=== PATIENT | male | born 1945 | race Caucasian/White ===

== ENCOUNTER → 2022-04-23 12:52 | Outpatient (CLI) | payer OTHER, SELFPAY ==
--- NOTE | ~2022-04-23 | US_ITS ---
EXAMINATION: US venous doppler [facility] DATE: 04/23/2022 13:30 INDICATION: Lower limb localized edema. TECHNIQUE: Grayscale ultrasound images without and with compression and Doppler ultrasound images of the bilateral lower extremity veins were obtained. COMPARISON: None. FINDINGS: The visualized portions of right common femoral vein, profunda (deep) femoral vein, femoral vein, pop liteal vein, peroneal veins, posterior tibial veins, and greater saphenous vein outflow are patent. The visualized portions of left common femoral vein, profunda femoral vein, femoral vein, popliteal v ein, peroneal veins, posterior tibial veins, and greater saphenous vein outflow are patent. IMPRESSION: 1. No deep venous thrombosis. Reviewed, dictated and finalized at location A.
--- NOTE | ~2022-04-23 | US_ITS ---
US renal BI 04/23/2022 13:29 Procedure: Realtime transabdominal ultrasound of the kidneys and bladder. Indication: Mass seen on MRI in the right kidney Comparison: No prior studies for comparison. Findings: Renal echotexture is normal bilaterally without hydronephrosis or renal stone. There is a r ight renal cyst laterally measuring 5.7 x 5.3 x 4.9 cm. The right kidney measures 10.5 cm and left ki dney measures 10.3 cm. Bladder within normal limits. Impression: 1: Right renal cyst measuring 5.7 cm maximum dimension. Reviewed, dictated and finalized at location A. Impression: 1: Right renal cyst measuring 5.7 cm maximum dimension.
== END ==
PROVIDERS: PCP Family Medicine Adolescent Medicine; Visit Provider Family Medicine Adolescent Medicine
DX: N28.89 Other specified disorders of kidney and ureter (principal); N28.1 Cyst of kidney, acquired; R60.0 Localized edema
CPT/HCPCS: 76775; 93970

== ENCOUNTER 2023-09-23 09:25 | Outpatient (CLI) | payer OTHER, SELFPAY ==
--- NOTE | 2023-09-23 11:00 | NEURO_ITS ---
Impression: # Complains of left hand pain and weakness. # Left ulnar neuropathy across the elbow. # No Carpal Tunnel Syndrome. # Needle/EMG exam not ordered. Nerve Conduction Studies Anti Sensory Summary Table Stim Site NR Peak (ms) P-T Amp (?V) Site1 Site2 Delta-P (ms) Dist (cm) Irving (m/s) Left Median Anti Sensory (2-3nd Digit) Wrist 3.6 13.8 Wrist 2-3nd Digit 3.6 14.0 39 Wrist 3.4 9.8 Wrist 2-3nd Digit 3.6 14.0 39 Left Radial Anti Sensory (Base 1st Digit) Wrist 2.5 24.4 Wrist Base 1st Digit 2.5 0.0 Left Ulnar Anti Sensory (5th Digit) Wrist 2.9 16.1 Wrist 5th Digit 2.9 14.0 48 Motor Summary Table Stim Site NR Onset (ms) O-P Amp (mV) Site1 Site2 Delta-0 (ms) Dist (cm) Irving (m/s) Left Median Motor (Abd Poll Brev) Wrist 3.4 3.0 Elbow Wrist 5.0 30.0 60 Elbow 8.4 2.6 Left Ulnar Motor (Abd Dig Minimi) Wrist 2.8 5.0 A Elbow Wrist 5.8 31.0 53 A Elbow 8.6 4.5 B Elbow Wrist 3.9 24.0 62 B Elbow 6.7 4.8 F Wave Studies NR F-Lat (ms) L-R F-Lat (ms) Left Median (Mrkrs) (Abd Poll Brev) 29.47 Left Ulnar (Mrkrs) (Abd Dig Min) 31.24 MTDD
== END 2023-09-23 09:26 | disposition home or self-care (01) ==
PROVIDERS: PCP Family Medicine Adolescent Medicine; Visit Provider Family Medicine Adolescent Medicine
DX: R20.0 Anesthesia of skin (principal); G56.22 Lesion of ulnar nerve, left upper limb
CPT/HCPCS: 95909

== ENCOUNTER 2023-11-24 11:00 | Outpatient (RCR) | payer OTHER, SELFPAY ==
--- NOTE | 2023-09-16 09:51 | OTOPEVAL1 ---
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 He presents today with a wrist contracture. He has two wrist braces/supports that he can no longer wear because of the wrist contracture. His goal is to improve wrist flexibility to wear the wrist immobilizer again to keep his finger nails out of his palm. He states they are digging into his palm and this is becoming painful. Assessment OT Clinical Summary Patient referred to OT with right wrist contracture and PMH of CVA with chronic right sided weakness. He presents with 90 degree flexion contracture of the wrist, which is causing pain and discomfort. This is also restricting safe hand hygiene practices and putting him at risk for developing skin break down and nail growth into the palm. Skilled OT indicated for use of thermal modalities, stretching, and HEP instruction to achieve improved flexibility of the right wrist/ hand. Plan of Care Interventions Therapeutic Exercise,Manual Therapy,Hot Pack/Cold Pack,Electrical Stimulation,Paraffin OT Services Indicated Yes Treatment Frequency and 2x/week for 4 weeks Duration These treatments will address the objective and functional deficits as defined above. The patient will be advanced safely and appropriately in order for the patient to progress towards his/her prior level of function. Additional exercises will be introduced and as well as a comprehensive home exercise program upon discharge, if needed, ?to ensure carryover of functional gains achieved in the clinic. This treatment plan has been reviewed and agreement upon by the patient.
--- NOTE | 2023-09-30 08:43 | PCOTNOTE ---
Patient called & cancelled scheduled appointment this date due to the weather.
--- NOTE | 2023-10-14 08:40 | PCOTNOTE ---
Patient called & cancelled scheduled appointment this date.
--- NOTE | 2023-10-21 11:52 | OTOPPROG ---
Assessment and note entered by GERMAIN Mcgowan/Nestor, CHT Progress Update 10/21/23 Diagnosis Contracture right hand Subjective Information Patient reports improved flexibility of the right wrist and hand. He reports it is easier to straighten his fingers and easier to move the fingers out of the palm for hygiene and nail care. He continues to have wrist pain, but overall this is not as frequent. He reports he is unable to don his wrist brace yet due to tightness. [facility]. Assessment OT Clinical Summary Patient referred to OT with right wrist contracture and PMH of CVA with chronic right sided weakness. Progress noted since starting therapy. He demonstrates improved flexibility, reduced pain, and easier ability to mobilize the fingers out of the palm. Continued skilled OT indicated for use of thermal modalities, stretching, and HEP instruction to achieve improved flexibility of the right wrist/hand to facilitate safe hand hygiene practices of the hand . Plan of Care Interventions Therapeutic Exercise,Manual Therapy,Hot Pack/Cold Pack,Electrical Stimulation,Paraffin OT Services Indicated Yes Treatment Frequency and 2x/week for 8 visits Duration These treatments will address the objective and functional deficits as defined above. The patient will be advanced safely and appropriately in order for the patient to progress towards his/her prior level of function. Additional exercises will be introduced and as well as a comprehensive home exercise program upon discharge, if needed, ?to ensure carryover of functional gains achieved in the clinic. This treatment plan has been reviewed and agreement upon by the patient.
--- NOTE | 2023-11-17 07:56 | PCOTNOTE ---
Patient did not show up for scheduled appointment this date. Called patient who did not answer. Left voicemail.
--- NOTE | 2023-11-24 11:58 | OTOPPROG ---
Assessment and note entered by GERMAIN Mcgowan/Nestor, CHT Progress Update 11/24/23 Diagnosis Contracture right hand Subjective Information Patient continues to report improved flexibility of the right wrist and hand. He is progressing to being able to wear his resting hand splint again with the fingers extended sometimes. He is having an easier time getting his fingers out of the palm for nail care. He also reports improvements with being able to hold his tooth brush with the right hand while using the left to squeeze tooth paste onto. Assessment OT Clinical Summary Patient referred to OT with right wrist contracture and PMH of CVA with chronic right sided weakness. Progress noted since last assessment a month ago. He continues to demonstrate improved flexibility, reduced pain, and easier ability to mobilize the fingers out of the palm. He is progressing to needing less and less assistance to don his brace. Continued skilled OT indicated for use of thermal modalities , stretching, and HEP instruction to achieve improved flexibility of the right wrist/hand to facilitate safe hand hygiene practices of the hand . Plan of Care Interventions Therapeutic Exercise,Manual Therapy,Hot Pack/Cold Pack,Electrical Stimulation,Paraffin OT Services Indicated Yes Treatment Frequency and 2x/week for 8 visits Duration These treatments will address the objective and functional deficits as defined above. The patient will be advanced safely and appropriately in order for the patient to progress towards his/her prior level of function. Additional exercises will be introduced and as well as a comprehensive home exercise program upon discharge, if needed, ?to ensure carryover of functional gains achieved in the clinic. This treatment plan has been reviewed and agreement upon by the patient.
--- NOTE | 2023-12-02 11:40 | PCOTNOTE ---
This treatment is being continued on visit number [id number]. Please see documentation on both accounts to view progress. Completed interventions, outcomes, and problems have been marked as Inactive to facilitate the copying of the Care plan routine for recurring accounts.
== END 2023-12-02 08:11 | disposition home or self-care (01) ==
LOC: ANHOT 11:00
PROVIDERS: PCP Family Medicine Adolescent Medicine; Visit Provider Family Medicine Adolescent Medicine
DX: M24.541 Contracture, right hand (principal); I69.351 Hemiplegia and hemiparesis following cerebral infarction affecting right dominant side
CPT/HCPCS: 97110; 97165; 99199

== ENCOUNTER 2024-02-09 08:00 | Outpatient (RCR) | payer OTHER, SELFPAY ==
--- NOTE | 2023-12-02 11:41 | PCOTNOTE ---
The treatment documented on this account is a continuation of the treatment documented on visit number [id number]. Please see documentation on both accounts to view progress. The Plan of Care has been transitioned and updated within the new V#. I have addressed and agree with the discipline specific Problems, Interventions, and Goals for the current certification period. Completed interventions, outcomes, and problems have been marked as Inactive to facilitate the copying of the Care plan routine for recurring accounts.
--- NOTE | 2024-01-05 10:17 | OTOPPROG ---
Assessment and note entered by Isaac Harper, GERMAIN/Nestor, CHT Evaluation Information Assessment Status Progress Diagnosis Contracture right hand Subjective Information Patient continues to report improved flexibility of the right wrist and hand. He has progressed to being able to wear the resting hand splint for 5+ hours a day and throughout the night. He reports his fingers are no longer digging into the palm. He continues to be unable to lay his hand flat on the table for nail care. ROM measurements: At rest the wrist is in 60 deg. of flexion. This improved from 70 degrees. With fingers flexed: Passively we are able to achieve 10 degrees of wrist extension. This improved from 15 degrees of flexion. With fingers extended: Passively the wrist achieves 20 degrees of flexion. This improved from 35 degrees of flexion. No active motion noted. Overall extrinsic flexors are becoming more flexible allowing for more of an extended wrist and hand for hygiene and overall improved comfort on a daily basis. Assessment OT Clinical Summary Patient referred to OT with right wrist contracture and PMH of CVA with chronic right sided weakness. Progress noted since last assessment a month ago. He continues to demonstrate improved flexibility, reduced pain, and easier ability to mobilize the fingers out of the palm. He is progressing to being able to wear his resting hand splint more throughout the day and at night, too. Continued skilled OT indicated for use of thermal modalities, stretching, and HEP instruction to achieve improved flexibility of the right wrist/hand to facilitate safe hand hygiene practices of the hand. He greatly benefits from the use of our BTE machine that provides CPM to the wrist. Plan of Care Interventions Therapeutic Exercise,Paraffin,Manual Therapy,Hot Pack/Cold Pack,Electrical Stimulation OT Services Indicated Yes Treatment Frequency and 2x/week for 8 visits Duration These treatments will address the objective and functional deficits as defined above. The patient will be advanced safely and appropriately in order for the patient to progress towards his/her prior level of function. Additional exercises will be introduced and as well as a comprehensive home exercise program upon discharge, if needed,
--- NOTE | 2024-01-05 10:19 | OPREHPOC ---
Outpatient Therapy Plan of Care This is a Multidisciplinary Plan of Care that may contain components documented by all disciplines (PT, OT, and ST.) OT Problem 1 OT Problem #1 Knowledge Deficit OT Goal 1 Goal 1. Patient to be independent with instructed materials. ---OT POC UPDATE 10/21/23--- 1. Met ---OT POC UPDATE 11/24/23--- 1. Met ---OT POC UPDATE 01/05/24--- 1. Met Target Visit 30 Progress Partially Met OT Problem 2 OT Problem #2 Impaired Flexibility OT Goal 1 Goal 1. Increase functional flexibility of the right wrist as demonstrated by patient being able to independently don and wear his wrist immobilizer. ---OT POC UPDATE 10/21/23--- 1. Not met, progressing with his flexibility, continue ---OT POC UPDATE 11/24/23--- 1. Progressing, continue goal ---OT POC UPDATE 01/05/24--- 1. Pt is able to independently don when relaxed in bed when his tone is low, in the clinic he continues to require assist, continue goal Target Visit 30 OT Problem 3 OT Problem #3 Impaired Flexibility OT Goal 1 Goal ---01/05/24--- New flexibility goal: 1. Patient to be able to mobilize his fingers into extension and lay in the hand flat on a table to be able to trim his nails with the left hand. Target Visit 30
--- NOTE | 2024-01-16 13:03 | PCOTNOTE ---
Patient called & cancelled scheduled appointment this date.
--- NOTE | 2024-02-09 09:01 | OTOPPROG ---
Assessment and note entered by Isaac Harper, GERMAIN/Nestor, CHT Progress Update 02/09/24 Diagnosis Contracture right hand Subjective Information Patient continues to report improved flexibility of the right wrist and hand. He has progressed to being able to wear the resting hand splint for most of the day and throughout the night. He reports his fingers are no longer digging into the palm. He reports nail care is also becoming easier. ROM measurements: At rest the wrist is in 60 deg. of flexion. Unchanged from last reassessment. With fingers flexed: Passively we are able to achieve a neutral wrist. This improved from 10 degrees of wrist flexion. With fingers extended: Passively the wrist achieves 30 degrees of flexion. This improved from 35 degrees of flexion. No active motion noted. Assessment OT Clinical Summary Patient referred to OT with right wrist contracture and PMH of CVA with chronic right sided weakness. Progress noted since last assessment a month ago. He continues to demonstrate improved flexibility, reduced pain, and easier ability to mobilize the fingers out of the palm. He is progressing to being able to wear his resting hand splint more throughout the day and at night, too. Continued skilled OT indicated for use of thermal modalities, stretching, and HEP instruction to achieve improved flexibility of the right wrist/hand to facilitate safe hand hygiene practices of the hand. At this time the patient is independent with splinting and stretching. Plan moving forward - Patient is scheduled for Botox on 03/30/24. 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 The patient appears to be nearing a progress plateau and the splint and HEP will keep him in adequate alignment until March . Plan of Care Interventions Therapeutic Exercise,Paraffin,Manual Therapy,Hot Pack/Cold Pack,Electrical Stimulation OT Services Indicated Yes Treatment Frequency and 2x/week for 8 visits, beginning week of April 05, Duration 2023. These treatments will address the objective and functional deficits as defined above. The patient will be advanced safely and margarito
--- NOTE | 2024-02-09 09:02 | OPREHPOC ---
Outpatient Therapy Plan of Care This is a Multidisciplinary Plan of Care that may contain components documented by all disciplines (PT, OT, and ST.) OT Problem 1 OT Problem #1 Knowledge Deficit OT Goal 1 Goal 1. Patient to be independent with instructed materials. ---OT POC UPDATE 10/21/23--- 1. Met ---OT POC UPDATE 11/24/23--- 1. Met ---OT POC UPDATE 01/05/24--- 1. Met ---OT POC UPDATE 02/09/24--- 1. Met Target Visit 35 Progress Partially Met OT Problem 2 OT Problem #2 Impaired Flexibility OT Goal 1 Goal 1. Increase functional flexibility of the right wrist as demonstrated by patient being able to independently don and wear his wrist immobilizer. ---OT POC UPDATE 10/21/23--- 1. Not met, progressing with his flexibility, continue ---OT POC UPDATE 11/24/23--- 1. Progressing, continue goal ---OT POC UPDATE 01/05/24--- 1. Pt is able to independently don when relaxed in bed when his tone is low, in the clinic he continues to require assist, continue goal ---OT POC UPDATE 02/09/24--- 1. Met, then we straightened the splint and he required assist, continue goal Target Visit 35 OT Problem 3 OT Problem #3 Impaired Flexibility OT Goal 1 Goal ---01/05/24--- New flexibility goal: 1. Patient to be able to mobilize his fingers into extension and lay in the hand flat on a table to be able to trim his nails with the left hand. ---OT POC UPDATE 02/09/24--- 1. Progressing, continue Target Visit 35
--- NOTE | 2024-02-19 09:36 | PCOTNOTE ---
This treatment is being continued on visit number [id number]. Please see documentation on both accounts to view progress. Completed interventions, outcomes, and problems have been marked as Inactive to facilitate the copying of the Care plan routine for recurring accounts.
== END 2024-02-18 13:14 | disposition home or self-care (01) ==
LOC: ANHOT 08:00
PROVIDERS: PCP Family Medicine Adolescent Medicine; Visit Provider Family Medicine Adolescent Medicine
DX: M24.541 Contracture, right hand (principal); I69.351 Hemiplegia and hemiparesis following cerebral infarction affecting right dominant side
CPT/HCPCS: 97110; 97763

== ENCOUNTER 2024-07-16 12:30 | Outpatient (RCR) | payer OTHER, SELFPAY ==
--- NOTE | 2024-04-26 11:48 | OTOPPROG ---
Assessment and note entered by Isaac Harper, GERMAIN/Nestor, CHT Progress Update 04/26/24 Assessment Status Progress Diagnosis Contracture right hand Subjective Information Patient's care was put on hold since 02/09/24 as he was nearing a progress plateau with his wrist flexibility. He presents today to resume care in conjunction with receiving Botox injections to the forearm beginning tomorrow. The wrist has remained relatively unchanged since our last appointment, slightly regressed. He reports inconsistent splint wearing. His goal is to increase his flexibility to a more comfortable position so the wrist isn't constantly so flexed. He presents today with the wrist in 75 degrees of flexion at rest with the fingers curled into the palm. The fingers are able to easily extend, however the wrist takes a bit more effort to get to near neutral (achieving 15 degrees of wrist flexion today when attempting to mobilize it straight). ROM measurements: At rest the wrist is in 75 deg. of flexion. Decreased from 60 degrees. With fingers flexed: Passively we are able to achieve 15 degrees away from neutral. With fingers extended: Passively the wrist achieves 45 degrees of flexion. No active motion noted. Assessment OT Clinical Summary Patient referred to OT with right wrist contracture and PMH of CVA with chronic right sided weakness. We have had therapy on pause for several weeks as he was nearing a progress plateau and we are restarting therapy in conjunction with patient receiving Botox injections with the hope of seeing more progress with the Botox assisting in muscle relaxation. Continued skilled OT indicated for use of thermal modalities, splinting adjustments to accommodate for improved flexibility, use of our BTE machine for CPM, stretching, and HEP instruction to achieve improved flexibility of the right wrist/hand to facilitate safe hand hygiene practices of the hand . Plan of Care Interventions Therapeutic Exercise,Manual Therapy,Hot Pack/Cold Pack,Electrical Stimulation,Check Out for Orthotic /Pr,Paraffin OT Services Indicated Yes Treatment Frequency and 1-2x/week for 8 visits Duration These treatments will address the objective and functional deficits as defined above. The patient will be advanced safely and appropriately in order for the patient to progress towards his/her prior level of function. Additional exercises will be introduced and as well as a comprehensive home exercise program upon discharge, if needed, ?to ensure carryover of functional gains achieved in the clinic. This treatment plan has been reviewed and agreement upon by the patient.
--- NOTE | 2024-05-27 09:01 | OTOPPROG ---
Assessment and note entered by Isaac Harper, GERMAIN/Nestor, CHT OT Progress Update 05/27/24 Diagnosis Contracture right hand Subjective Information Patient reports no pain in the wrist and states it 's feeling more flexible. A month ago he was presenting with the wrist in 75 degrees of flexion and today he presents in 45 degrees of flexion with fingers extended. He has progressed to being able to tolerate the resting hand splint all night and intermittently throughout the day. ROM measurements: At rest the wrist is in 45 deg. of flexion. Improved from 75 degrees of flexion. With fingers flexed: Passively we are able to achieve 15 degrees away from neutral. With fingers extended: Passively the wrist achieves 45 degrees of flexion. No active motion noted. Assessment OT Clinical Summary Patient referred to OT with right wrist contracture and PMH of CVA with chronic right sided weakness. He presents today after a month of therapy as well as a round of Botox injections. He demonstrates improvements in overall flexibility - at rest the wrist is flexed at 45 and is easily mobilized into 15 degrees of flexion , with some effort he is able to achieve neutral. Due to the finger flexor tension with the wrist and fingers held in passive extension, he continues to be unable to manage nail care on his own yet. He has progressed to wearing his resting hand splint all night and intermittently throughout the day. Continued skilled OT indicated for use of thermal modalities, splinting adjustments to accommodate for improved flexibility, use of our BTE machine for CPM, stretching, and HEP instruction to achieve improved flexibility of the right wrist/hand to facilitate safe hand hygiene practices of the hand. Plan of Care Interventions Therapeutic Exercise,Manual Therapy,Hot Pack/Cold Pack,Electrical Stimulation,Check Out for Orthotic /Pr,Paraffin OT Services Indicated Yes Treatment Frequency and 2x/week for 8 visits Duration These treatments will address the objective and functional deficits as defined above. The patient will be advanced safely and appropriately in order for the patient to progress towards his/her prior level of function. Additional exercises will be introduced and as well as a comprehensive home exercise program upon discharge, if needed, ?to ensure carryover of functional gains achieved in the clinic. This treatment plan has been reviewed and agreement upon by the patient.
--- NOTE | 2024-07-12 13:27 | OTOPPROG ---
Assessment and note entered by Isaac Harper, GERMAIN/Nestor, CHT OT Progress Update 07/12/24 Assessment Status Progress Diagnosis Contracture right hand Subjective Information Patient reports no pain in the wrist and states it 's feeling more flexible. A month ago he was presenting with the wrist in 45 degrees of flexion and today he presents in 35 degrees of flexion with fingers extended. He has progressed to being able to tolerate the resting hand splint all night and as well as throughout the day. Today he comes in and reports he has worn it for 36 hours. ROM measurements: At rest the wrist is in 35 deg. of flexion. Improved from 45 degrees of flexion. With fingers flexed: Passive wrist extension achieves neutral. This improved from 15 degrees away from neutral. With fingers extended: Passive wrist extension measures 15 degrees of flexion. This improved from 45 degrees of flexion. No active motion noted. Assessment OT Clinical Summary Patient referred to OT with right wrist contracture and PMH of CVA with chronic right sided weakness. He presents today for OT reassessment. He demonstrates improvements in overall flexibility - at rest the wrist is flexed at 35 and is easily mobilized into neutral with the fingers flexed. He has progressed to being able to clip 3 of the 5 nails on this hand. He has progressed to wearing his resting hand splint all night and day. Continued skilled OT indicated for use of thermal modalities, splinting adjustments to accommodate for improved flexibility, use of our BTE machine for CPM, stretching, and HEP instruction to achieve improved flexibility of the right wrist/hand to facilitate safe hand hygiene practices of the hand . He undergoes another round of Botox in 2 weeks and continued therapy in conjunction with this is highly recommended. Plan of Care Interventions Therapeutic Exercise,Manual Therapy,Hot Pack/Cold Pack,Electrical Stimulation,Check Out for Orthotic /Pr,Paraffin OT Services Indicated Yes Treatment Frequency and 2x/week for 9 visits Duration These treatments will address the objective and functional deficits as defined above. The patient will be advanced safely and appropriately in order for the patient to progress towards his/her prior level of function. Additional exercises will be introduced and as well as a comprehensive home exercise program upon discharge, if needed, ?to ensure carryover of functional gains achieved in the clinic. This treatment plan has been reviewed and agreement upon by the patient.
== END 2024-07-25 23:59 | disposition home or self-care (01) ==
LOC: ANHOT 12:30
PROVIDERS: PCP Family Medicine Adolescent Medicine; Visit Provider Family Medicine Adolescent Medicine
DX: M24.541 Contracture, right hand (principal); I69.351 Hemiplegia and hemiparesis following cerebral infarction affecting right dominant side
CPT/HCPCS: 97110; 97535; 97763

== ENCOUNTER 2025-01-24 11:15 | Outpatient (RCR) | payer OTHER, SELFPAY ==
--- NOTE | 2024-11-01 11:43 | PCOTNOTE ---
The treatment documented on this account is a continuation of the treatment documented on visit number [id number]. Please see documentation on both accounts to view progress. The Plan of Care has been transitioned and updated within the new V#. I have addressed and agree with the discipline specific Problems, Interventions, and Goals for the current certification period. Completed interventions, outcomes, and problems have been marked as Inactive to facilitate the copying of the Care plan routine for recurring accounts.
--- NOTE | 2024-11-08 11:16 | PCOTNOTE ---
Patient called & cancelled scheduled appointment this date and later this week. Did not give a reason.
--- NOTE | 2024-11-22 11:16 | PCOTNOTE ---
Patient cancelled appt this AM due to having a pipe burst in his bathroom this morning.
--- NOTE | 2024-11-26 13:29 | OTOPPROG ---
Assessment and note entered by Isaac Harper, GERMAIN/Nestor, CHT OT Progress Update 11/26/24 Diagnosis Contracture right hand Subjective Information Patient presents for re-assessment. He reports feeling not a big change in his flexibility/tone following Botox 10/06/24. He has been compliant with wearing resting hand orthosis. At rest the wrist measures about 40 degrees of flexion ( improved from 55). With the fingers flexed he is able to achieve neutral and with the fingers extended the wrist is able to be passively stretched to about 30 degrees away from neutral. He presents today with his resting hand splint in need of some modifications to increased fit, comfort, and stretch as he has made progress with his flexibility. The splint was progressed to his tolerance, improving 15 degrees straighter. Assessment OT Clinical Summary Patient referred to OT with right wrist contracture and PMH of CVA with chronic right sided weakness. He presents today for OT reassessment. He presents with improved flexibility with wrist extension and his orthotic was progressed into more extension to reflect this progress. He continues to have tone and contracture that limits his ability to lay his hand flat on a table for nail care however he is able to complete nail care with difficulty. He is compliant with wearing the brace. Patient to continue therapy after next round of Botox injections (01/05/25) to progress ROM via use of heat, stretching, and the BTE machine. Skilled OT also indicated for static progressive splinting. Plan of Care Interventions Therapeutic Exercise,Check Out for Orthotic/ Prosthetic,Manual Therapy,Hot Pack/Cold Pack, Electrical Stimulation OT Services Indicated Yes Treatment Frequency and 2x/week for 8 visits Duration These treatments will address the objective and functional deficits as defined above. The patient will be advanced safely and appropriately in order for the patient to progress towards his/her prior level of function. Additional exercises will be introduced and as well as a comprehensive home exercise program upon discharge, if needed, ?to ensure carryover of functional gains achieved in the clinic. This treatment plan has been reviewed and agreement upon by the patient.
--- NOTE | 2025-01-10 11:52 | OTOPPROG ---
Assessment and note entered by Isaac Harper, GERMAIN/Nestor, NATALIT OT Progress Report 01/10/25 Assessment Status Progress Diagnosis Contracture right hand Subjective Information Patient presents for re-assessment after a month off of therapy while he was waiting for another botox injection. He reports feeling a little more flexible after botox last week. He has been compliant with wearing resting hand orthosis. At rest the wrist measures about 40 degrees of flexion (unchanged from a month ago). With the fingers flexed his wrist is able to achieve neutral and with the fingers extended the wrist is able to be passively stretched to about 10-15 degrees away from neutral (improved from 30 degrees). On the BTE his wrist achieves 15 degrees past neutral. Assessment OT Clinical Summary Patient referred to OT with right wrist contracture and PMH of CVA with chronic right sided weakness. He presents today for OT reassessment. He presents with improved flexibility of the wrist and fingers following botox injections last week. He is tolerating more aggressive stretching. He continues to have tone and contracture that limits his ability to lay his hand flat on a table for nail care however he is able to complete nail care with difficulty. He is compliant with wearing the brace. Patient to continue therapy to progress ROM via use of heat, stretching, and the BTE machine. Skilled OT also indicated for static progressive splinting. Plan of Care Interventions Therapeutic Exercise,Check Out for Orthotic/ Prosthetic,Manual Therapy,Hot Pack/Cold Pack, Electrical Stimulation OT Services Indicated Yes Treatment Frequency and 2x/week for 8 visits Duration These treatments will address the objective and functional deficits as defined above. The patient will be advanced safely and appropriately in order for the patient to progress towards his/her prior level of function. Additional exercises will be introduced and as well as a comprehensive home exercise program upon discharge, if needed, ?to ensure carryover of functional gains achieved in the clinic. This treatment plan has been reviewed and agreement upon by the patient.
--- NOTE | 2025-01-28 11:26 | PCOTNOTE ---
Patient did not show up for scheduled appointment this date. Called patient who reports he forgot. Reminded him of his appt on Friday.
== END 2025-01-30 23:59 | disposition home or self-care (01) ==
LOC: ANHOT 11:15
PROVIDERS: PCP Family Medicine Adolescent Medicine; Visit Provider Family Medicine Adolescent Medicine
DX: M24.541 Contracture, right hand (principal); I69.351 Hemiplegia and hemiparesis following cerebral infarction affecting right dominant side
CPT/HCPCS: 97110; 97763

== ENCOUNTER 2025-06-06 13:12 | Outpatient (RCR) | payer OTHER, SELFPAY ==
--- NOTE | 2025-06-06 10:59 | OTOPDC ---
Assessment and note entered by Isaac Harper, OTR/L, CHT OT D/C Notification Patient has not returned for treatments since he no showed an appointment on 01/28/25. Patient had been a long standing patient for right wrist/hand contracture s/p CVA, attending 56 therapy appointments. Most recent progress update is date 01/10/25. Please refer to this report for a more comprehensive summary. Discharging at this time due to lack of attendance.
== END 2025-06-06 13:13 | disposition home or self-care (01) ==
LOC: ANHOT 13:12
PROVIDERS: PCP Family Medicine Adolescent Medicine; Visit Provider Family Medicine Adolescent Medicine
DX: M24.541 Contracture, right hand (principal); I69.351 Hemiplegia and hemiparesis following cerebral infarction affecting right dominant side
CPT/HCPCS: 99199